=== PATIENT | female | born 1960 | race Caucasian/White ===

== ENCOUNTER 2019-12-01 09:31 | Outpatient (CLI) | payer OTHER, SELFPAY ==
--- NOTE | 2019-12-01 09:33 | ECG_ITS ---
Measurements Intervals [place] Rate: 67 P: 27 [place]: 287 QRS: 9 QRSD: 77 T: 4 QT: 373 QTc: 395 Interpretive Statements SINUS RHYTHM WITH FIRST DEGREE AV BLOCK VOLTAGE CRITERIA FOR LVH BORDERLINE T WAVE ABNORMALITY- INFERIOR LEADS BASELINE ARTIFACT- I, II, III, AVR, AVL, AVF ABNORMAL ECG Electronically Signed On 12-01-2019 10:10:41 LAUNDRY SORTER by Nayan Che D.O.
[2019-12-01 10:02] LABS: Hematocrit 39.4 % (37.0-47.0); Hemoglobin 12.8 g/dL (12.0-15.0)
== END 2019-12-01 09:32 | disposition home or self-care (01) ==
LOC: ANHSURGERY 09:33
PROVIDERS: PCP Internal Medicine; Visit Provider Obstetrics & Gynecology
DX: D64.9 Anemia, unspecified (principal); E78.5 Hyperlipidemia, unspecified; R94.31 Abnormal electrocardiogram [ECG] [EKG]
CPT/HCPCS: 36415; 85014; 85018; 93005

== ENCOUNTER 2019-12-11 01:00 | Day surgery (SDC) | payer OTHER, SELFPAY ==
[2019-11-26 14:48] VITALS: BMI 35.6
--- NOTE | 2019-12-09 10:28 | PM.IMHP ---
H&P: HPI History of Present Illness Chief complaint: Postmenopausal Bleeding Narrative: Paula Duron is a 59 year old female who is admitted for hysteroscopy and dilatation and curettage. She has thickened endometrium and uterine fibroids on ultrasound. Risks and benefits of the procedure reviewed in full. She received the ACOG handout entitled hysteroscopy and dilatation and curettage respectively. She had all questions answered. She asked to proceed Review of Systems Review of Systems: All systems reviewed & are unremarkable except as noted in HPI and below PMFSH Past Medical History Medical History Anemia Cholecystectomy planned 2000 GERD (gastroesophageal reflux disease) Hyperlipidemia Hypothyroidism Osteoarthritis Thrombocytosis Vitamin deficiency Surgical History Surgical History History of surgical removal of meniscus of knee Right: 2010 Left: 2013 Total knee replacement status Right knee: August 2015 Left knee: 2016 Family History Family History Father Hypertension Family history of dementia Acute myocardial infarction Osteoarthritis Sibling Hyperlipidemia Mother Family history of malignant neoplasm of breast in first degree relative Other Family history of heart disease in male family member before age 55 Social History Social History Smoking status: Never smoker Alcohol intake: never Substance use: never Meds Home Medications and Allergies Home Medications Medication Instructions Recorded Confirmed Type conjugated estrogens 0.9 mg tablet 0.9 mg PO DAILY 08/07/19 11/26/19 History esomeprazole magnesium 40 mg 40 mg PO DAILY 08/07/19 11/26/19 History capsule,delayed release ferrous sulfate 325 mg (65 mg 325 mg PO DAILY 08/07/19 11/26/19 History iron) tablet lisinopril 10 mg tablet 10 mg PO DAILY #30 tablet 10/27/19 11/26/19 Rx levothyroxine 125 mcg tablet 125 mcg PO DAILY #90 tablet 11/05/19 11/26/19 Rx loratadine [Claritin] 10 mg PO DAILY 11/26/19 11/26/19 History multivitamin 1 tablet PO DAILY 11/26/19 11/26/19 History atorvastatin 20 mg tablet 20 mg PO DAILY #90 tablet 12/02/19 Rx Allergies Allergy/AdvReac Type Severity Reaction Status Date / Time Penicillins Allergy Unknown Rash Verified 11/26/19 14:49 mold Allergy CONGESTION Verified 11/26/19 14:49 Exam Const: General: no acute distress Eyes: General: appearance normal, both eyes and all related structures Neck: Neck: supple and no JVD Thyroid: thyroid normal Resp: Effort & Inspection: normal respiratory effort Auscultation: clear to auscultation bilaterally Cardio: Rate: regular rate Rhythm: regular rhythm GI: Inspection: non-distended GI Palp: Yes Soft to palpation, No Tenderness to palpation present (GI) and No Guarding due to palpation present (GI) Auscultation: normal bowel sounds : General: Yes bladder normal to palpation External Female Exam: normal external appearance Speculum Exam - Vagina: normal vaginal discharge and No vaginal bleeding Speculum Exam - Cervix: nontender Bimanual exam- vagina & uterus: bladder normal to palpation and No Cervical tenderness present OB/external & speculum: No vaginal bleeding Skin: General skin exam: no rashes or lesions noted Extrem: General: normal to inspection and no edema Psych: Mental Status: mental status grossly normal Affect: normal affect Assessment and Plan Additional Plan impression: Postmenopausal bleeding Plan: Hysteroscopy, dilatation and curettage
[2019-12-11 06:04] VITALS: BP 140/51; PULSE 77; RESP 16; TEMP 36.6; O2SAT 99
[2019-12-11] MEDS: LACTATED RINGERS 1,000 ML 30 ML IV CONT (06:20)
--- NOTE | 2019-12-11 06:59 | WPDHPUPDATE1 ---
History and Physical Update Update Date/Time: 12/11/19 06:59 History and Physical has been reviewed, including an updated exam of the patient. There are NO changes in the patient's condition. Risks, benefits, and alternatives have been discussed and questions answered. Patient agrees to proceed with procedure.
--- NOTE | 2019-12-11 07:04 | WPDANESEPPF ---
Anes - Initial Pre Proc Eval Procedure: Operation Date: 12/11/19 07:30 Proposed Procedures p Hysteroscopy, Dilation and Curettage - Duncan Chen MD Date/Time: 12/11/19 07:04 Surgeon: Duncan Chen MD Pre Op Diagnosis: Postmenopausal Bleeding Patient Data Age: 59 Gender: F Height: 5 ft 3 in Weight: 91.5 kg Last Vital Signs Temp 36.6 C 12/11/19 06:04 Pulse 77 12/11/19 06:04 Resp 16 12/11/19 06:04 BP 140/51 L 12/11/19 06:04 Pulse Ox 99 12/11/19 06:04 Allergies Allergy/AdvReac Type Severity Reaction Status Date / Time mold Allergy Mild CONGESTION Verified 12/11/19 06:08 Penicillins Allergy Mild Rash Verified 12/11/19 06:08 Home Medications Medication Instructions Recorded Confirmed Type conjugated estrogens 0.9 mg tablet 0.9 mg PO DAILY 08/07/19 12/11/19 History esomeprazole magnesium 40 mg 40 mg PO DAILY 08/07/19 12/11/19 History capsule,delayed release ferrous sulfate 325 mg (65 mg 325 mg PO DAILY 08/07/19 12/11/19 History iron) tablet lisinopril 10 mg tablet 10 mg PO DAILY #30 tablet 10/27/19 12/11/19 Rx levothyroxine 125 mcg tablet 125 mcg PO DAILY #90 tablet 11/05/19 12/11/19 Rx loratadine [Claritin] 10 mg PO DAILY 11/26/19 12/11/19 History multivitamin 1 tablet PO DAILY 11/26/19 12/11/19 History atorvastatin 20 mg tablet 20 mg PO DAILY #90 tablet 12/02/19 12/11/19 Rx hydrocodone-acetaminophen [[place]] 1 tablet PO Q4H PRN #20 tablet 12/11/19 Rx Patient hx anesthesia problems: post op nausea/vomiting Family hx anesthesia problems: none PMFSH Past Medical History Medical History Anemia Cholecystectomy planned 2000 GERD (gastroesophageal reflux disease) Hyperlipidemia Hypothyroidism Osteoarthritis Thrombocytosis Vitamin deficiency Surgical History Surgical History History of surgical removal of meniscus of knee Right: 2010 Left: 2013 Total knee replacement status Right knee: August 2015 Left knee: 2017 Family History Family History Father Hypertension Family history of dementia Acute myocardial infarction Osteoarthritis Sibling Hyperlipidemia Mother Family history of malignant neoplasm of breast in first degree relative Other Family history of heart disease in male family member before age 55 Social History Social History Smoking status: Never smoker Alcohol intake: never Substance use: never Anes - Eval Final PreProcedure Day of Procedure 12/11/19 07:04 Patient weight: obese Heart: regular rate and rhythm Lungs: clear to auscultation Airway: Mallampati scale class II Neurological: alert and oriented Last oral intake: >/= 8 hours ASA classification: III Emergent: no Anesthetic plan: proceed Anesthesia type and monitoring: general GIVS and standard monitoring Informed Consent: The patient's anesthetic plan and its attendant risks and benefits were discussed with the patient/family/POA. Questions were solicited and answers provided to the satisfaction of the patient/family/POA.
[2019-12-11] MEDS: KETOROLAC 30 MG/ML VIAL (*BKC) IV PUSH (07:45)
--- NOTE | 2019-12-11 07:51 | P.OP_ITS ---
Procedure Note - Detailed Date of procedure: 12/11/19 Pre-op diagnosis: Postmenopausal Bleeding Surgeon: Duncan Chen MD Postop diagnosis: Postmenopausal bleeding and uterine polyp Procedure: Hysteroscopy, dilatation curettage, polypectomy Anesthesia: IV sedation local Findings: Small uterine polyp benign-appearing endometrium Complications: None Description of procedure: The patient was prepped and draped in the normal sterile fashion placed in the dorsal lithotomy position. Under excellent IV s edation weighted speculum was placed in the posterior fornix of vagina. Anterior lip of the cervix grasped with a single-tooth tenaculum. 2.5cc of 1% xylocaine anesthesia placed at 2 for 8:10 a.m. respectively. Uterus sounded to 8cm. Serial dilatation with fragmented dilators performed followed by passage of the 5mm visualizing hysteroscope. Normal saline was used as visualizing medium. The uterine polyp was seen in the polyp forcep was used to remove this in toto. No other abnormalities were seen. The uterus was scraped over the entire 360?. The instruments removed. The patient was awakened. She went to recovery in satisfactory condition. All sponge, needle, instrument counts were correct. There were no immediate complications
[2019-12-11 07:52] VITALS: BP 128/72; PULSE 71; RESP 16; O2SAT 100
[2019-12-11 08:22] VITALS: BP 137/59; PULSE 66; RESP 14
== END 2019-12-11 08:48 | disposition home or self-care (01) ==
PROVIDERS: PCP Internal Medicine; Visit Provider Obstetrics & Gynecology
PROC: 0U5B8ZZ Destruction of Endometrium, Via Natural or Artificial Opening Endoscopic (ICD-10-PCS; CPT 58563; principal; 2019-12-11 07:30)
DX: N95.0 Postmenopausal bleeding (principal); N84.0 Polyp of corpus uteri; D64.9 Anemia, unspecified; E78.5 Hyperlipidemia, unspecified; K21.9 Gastro-esophageal reflux disease without esophagitis; E03.9 Hypothyroidism, unspecified; M19.90 Unspecified osteoarthritis, unspecified site; E66.9 Obesity, unspecified; Z68.35 Body mass index [BMI] 35.0-35.9, adult
CPT/HCPCS: 58558; 88305; A9270; J1885; J2250; J2704; J7030; J7120

== ENCOUNTER 2020-11-17 07:43 | Outpatient (CLI) | payer OTHER, SELFPAY ==
--- NOTE | ~2020-11-17 | MM_ITS ---
EXAMINATION: MM screening guille BI w girma HISTORY: Screening TECHNIQUE: Craniocaudal and mediolateral oblique 3-D tomosynthesis images were obtained and synthetic 2-D images were generated. CAD analysis was submitted and interpreted. COMPARISON: Comparison to multiple prior studies sequentially, with oldest reviewed study dated 08/30. BREAST PARENCHYMAL COMPOSITION: The breasts are almost entirely fatty. FINDINGS: There is no evidence of suspicious mass, calcification, or architectural distortion to sugg est malignancy in either breast. There has been no suspicious interval change. IMPRESSION: 1. No mammographic evidence of malignancy. 2. Recommend routine screening mammography in one year. BI-RADS Category 1: Negative Reviewed, dictated and finalized at location [facility] [employer]PA[employer]
== END 2020-11-17 07:44 | disposition home or self-care (01) ==
PROVIDERS: PCP Internal Medicine; Visit Provider Obstetrics & Gynecology
DX: Z12.31 Encounter for screening mammogram for malignant neoplasm of breast (principal)
CPT/HCPCS: 77063; 77067

== ENCOUNTER 2020-12-16 17:02 | Outpatient (CLI) | payer OTHER, SELFPAY | END 2020-12-16 17:03 | disposition home or self-care (01) | LOC: ANHCOVIDVC 17:02 | PROVIDERS: PCP Internal Medicine | DX: Z23 Encounter for immunization (principal) | CPT/HCPCS: 0001A; 91300 ==

== ENCOUNTER 2021-01-05 08:01 | Outpatient (CLI) | payer OTHER, SELFPAY ==
--- NOTE | 2021-01-05 08:04 | ECG_ITS ---
Measurements Intervals [place] Rate: 64 P: 28 [place]: 309 QRS: 8 QRSD: 86 T: 4 QT: 389 QTc: 403 Interpretive Statements SINUS RHYTHM WITH FIRST DEGREE AV BLOCK VOLTAGE CRITERIA FOR LVH BASELINE ARTIFACT- I, II, III, AVR, AVL, AVF ABNORMAL ECG Electronically Signed On 01-05-2021 9:11:05 CDT by Nayan Che D.O.
[2021-01-05 09:05] LABS: Hematocrit 37.4 % (37.0-47.0); Hemoglobin 12.6 g/dL (12.0-15.0)
== END 2021-01-05 08:02 | disposition home or self-care (01) ==
LOC: ANHSURGERY 08:03
PROVIDERS: PCP Internal Medicine; Visit Provider Obstetrics & Gynecology
DX: N95.0 Postmenopausal bleeding (principal); E78.5 Hyperlipidemia, unspecified; I10 Essential (primary) hypertension; Z01.818 Encounter for other preprocedural examination
CPT/HCPCS: 36415; 85014; 85018; 93005

== ENCOUNTER → 2021-01-06 00:59 | Outpatient (CLI) | payer OTHER, SELFPAY ==
[2021-01-06 19:49] LABS: SARS-CoV-2 RNA PCR Negative
== END ==
PROVIDERS: PCP Internal Medicine; Visit Provider Obstetrics & Gynecology
DX: Z01.812 Encounter for preprocedural laboratory examination (principal); Z20.822 Contact with and (suspected) exposure to COVID-19
CPT/HCPCS: C9803; U0003; U0005

== ENCOUNTER 2021-01-06 16:59 | Outpatient (CLI) | payer OTHER, SELFPAY | END 2021-01-06 17:00 | disposition home or self-care (01) | LOC: ANHCOVIDVC 16:59 | PROVIDERS: PCP Internal Medicine | DX: Z23 Encounter for immunization (principal) | CPT/HCPCS: 0002A; 91300 ==

== ENCOUNTER 2021-01-09 01:20 | Day surgery (SDC) | payer OTHER, SELFPAY ==
[2020-12-26 16:01] VITALS: BMI 37.1
--- NOTE | 2021-01-03 14:01 | PM.IMHP ---
H&P: HPI History of Present Illness Date/Time: 01/03/21 14:01 Edil is a 60-year-old 1 para 1 who is admitted for hysteroscopy / polypectomy / dilatation curettage. She is postmenopausal and ultrasound showed a last consistent with probable fibroids. The EMC was poorly defined but appeared prominent with vascular flow present. Risks and benefits of the procedure reviewed in full. The patient received the ACOG handout entitled hysteroscopy / and dilatation curettage Chief Complaint: postmenopausal bleed Review of Systems Review of Systems: All systems reviewed & are unremarkable except as noted in HPI and below PMFSH Past Medical History Medical History Allergies Anemia Arthritis Cholecystectomy planned 2000 GERD (gastroesophageal reflux disease) Hyperlipidemia Hypothyroidism Osteoarthritis Thrombocytosis Vitamin deficiency Surgical History Surgical History History of cholecystectomy History of surgical removal of meniscus of knee Right: 2010 Left: 2013 Total knee replacement status Right knee: August 2015 Left knee: 2016 Family History Family History Father Hypertension Family history of dementia Acute myocardial infarction Osteoarthritis Sibling Hyperlipidemia Mother Family history of malignant neoplasm of breast in first degree relative Other Family history of heart disease in male family member before age 55 Social History Social History Smoking status: Never smoker Alcohol intake: never Substance use: never Substance use type: does not use 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 Gender identity (if verbalized by the patient): Female Spiritual care concerns: No Meds Home Medications and Allergies Home Medications Medication Instructions Recorded Confirmed Type conjugated estrogens 0.9 mg tablet 0.9 mg PO DAILY 08/07/19 12/26/20 History loratadine [Claritin] 10 mg PO DAILY 11/26/19 12/26/20 History multivitamin 1 tablet PO DAILY 11/26/19 12/26/20 History lisinopril 10 mg tablet 10 mg PO DAILY #90 tablet 03/07/20 12/26/20 Rx atorvastatin 20 mg tablet 20 mg PO DAILY #90 tablet 08/29/20 12/26/20 Rx calcium-vitamin D3-vitamin K 500 1 tablet PO DAILY 09/07/20 12/26/20 History mg-100 unit-40 mcg chewable tablet progesterone micronized 100 mg 100 mg PO DAILY cap 09/07/20 12/26/20 History capsule estradiol 2 mg PO DAILY 12/26/20 12/26/20 History ferrous sulfate [iron] 650 mg PO DAILY 12/26/20 12/26/20 History levothyroxine 125 mcg PO DAILY 12/26/20 12/26/20 History esomeprazole magnesium 40 mg 40 mg PO DAILY #90 cap 12/28/20 Rx capsule,delayed release Allergies Allergy/AdvReac Type Severity Reaction Status Date / Time mold Allergy Mild CONGESTION Verified 12/26/20 15:58 Penicillins Allergy Mild Rash Verified 12/26/20 15:58 Exam Const: General: no acute distress Eyes: General: appearance normal, both eyes and all related structures Neck: Neck: supple and no JVD Thyroid: thyroid normal Resp: Effort & Inspection: normal respiratory effort Auscultation: clear to auscultation bilaterally Cardio: Rate: regular rate Rhythm: regular rhythm GI: Inspection: non-distended GI Palp: Yes Soft to palpation, No Tenderness to palpation present (GI) and No Guarding due to palpation present (GI) Auscultation: normal bowel sounds : External Female Exam: normal external appearance Speculum Exam - Vagina: normal appearance of the vagina Speculum Exam - Cervix: normal appearance of the cervix Bimanual exam- vagina & uterus: enlarged Bimanual Exam- Adnexa, other: no masses Skin: General skin exam: no rashes or lesions noted Extrem: General: normal to inspection and no edema Psych: Mental Status
--- NOTE | 2021-01-09 06:06 | WPDHPUPDATE1 ---
History and Physical Update Update Date/Time: 01/09/21 06:06 History and Physical has been reviewed, including an updated exam of the patient. There are NO changes in the patient's condition. Risks, benefits, and alternatives have been discussed and questions answered. Patient agrees to proceed with procedure.
[2021-01-09 07:29] VITALS: BP 121/56; PULSE 77; RESP 20; TEMP 36.7; O2SAT 98
--- NOTE | 2021-01-09 07:47 | WPDANESEPPF ---
Anes - Initial Pre Proc Eval Procedure: Operation Date: 01/09/21 09:15 Proposed Procedures p Hysteroscopy Dilation and Curettage With Polypectomy - Duncan Chen MD Date/Time: 01/09/21 07:47 Surgeon: Duncan Chen MD Pre Op Diagnosis: postmenopausal bleeding Patient Data Age: 60 Gender: F Height: 5 ft 3 in Weight: 95.2 kg Allergies Allergy/AdvReac Type Severity Reaction Status Date / Time mold Allergy Mild CONGESTION Verified 12/26/20 15:58 Penicillins Allergy Mild Rash Verified 12/26/20 15:58 Home Medications Medication Instructions Recorded Confirmed Type conjugated estrogens 0.9 mg tablet 0.9 mg PO DAILY 08/07/19 12/26/20 History loratadine [Claritin] 10 mg PO DAILY 11/26/19 12/26/20 History multivitamin 1 tablet PO DAILY 11/26/19 12/26/20 History lisinopril 10 mg tablet 10 mg PO DAILY #90 tablet 03/07/20 12/26/20 Rx atorvastatin 20 mg tablet 20 mg PO DAILY #90 tablet 08/29/20 12/26/20 Rx calcium-vitamin D3-vitamin K 500 1 tablet PO DAILY 09/07/20 12/26/20 History mg-100 unit-40 mcg chewable tablet progesterone micronized 100 mg 100 mg PO DAILY cap 09/07/20 12/26/20 History capsule estradiol 2 mg PO DAILY 12/26/20 12/26/20 History ferrous sulfate [iron] 650 mg PO DAILY 12/26/20 12/26/20 History levothyroxine 125 mcg PO DAILY 12/26/20 12/26/20 History esomeprazole magnesium 40 mg 40 mg PO DAILY #90 cap 12/28/20 Rx capsule,delayed release hydrocodone-acetaminophen 1 tablet PO Q6H PRN #14 tablet 01/09/21 Rx Patient hx anesthesia problems: post op nausea/vomiting Family hx anesthesia problems: none PMFSH Past Medical History Medical History Allergies Anemia Arthritis Cholecystectomy planned 2000 GERD (gastroesophageal reflux disease) Hyperlipidemia Hypothyroidism Osteoarthritis Thrombocytosis Vitamin deficiency Surgical History Surgical History History of cholecystectomy History of surgical removal of meniscus of knee Right: 2010 Left: 2013 Total knee replacement status Right knee: August 2015 Left knee: 2017 Family History Family History Father Hypertension Family history of dementia Acute myocardial infarction Osteoarthritis Sibling Hyperlipidemia Mother Family history of malignant neoplasm of breast in first degree relative Other Family history of heart disease in male family member before age 55 Social History Social History Smoking status: Never smoker Alcohol intake: never Substance use: never Substance use type: does not use Living arrangements: alone 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 Questions were solicited and answers provided to the satisfaction of the patient/family/POA.
[2021-01-09] MEDS: ACETAMINOPHEN 500 MG TABLET 1000 MG PO (07:48)
[2021-01-09] MEDS: LACTATED RINGERS 1,000 ML 30 ML IV CONT (08:00)
[2021-01-09] MEDS: SCOPOLAMINE 1.5 MG PATCH TRANSDERM (08:11)
--- NOTE | 2021-01-09 09:23 | SUR.OPER ---
40ML NS IN, 40ML NS OUT
--- NOTE | 2021-01-09 09:26 | P.OP_ITS ---
Procedure Note - Detailed Date of procedure: 01/09/21 Pre-op diagnosis: postmenopausal bleeding Surgeon: Duncan Chen MD Postop diagnosis: Postmenopausal bleeding Procedure: Hysteroscopy/dilatation curettage Anesthesia: IV sedation local EBL: 5cc Findings: Uterus sounded to 7cm. Retroverted in nature. Clot in the uterus but no definitive abnormalities. Complications: None Description of procedure: The patient was prepped draped in the normal sterile fashion placed in the dorsal lithotomy position. Under excellent IV sedation weighted speculum was placed in posterior fornix of vagina. Anterior lip of the cervix grasped with single-tooth tenaculum and 2.5cc 1% xylocaine anesthesia chirag betty at 2, 4, 8, 10:00 a.m. of the cervix. Uterus was retroverted and sounded to 7cm. Serial dilatation with fragmented dilators performed followed by passage of the 5mm visualizing hysteroscope. Normal saline was used as visualizing medium. Clots were seen each fallopian tube os could be seen but no abnormality seen the uterus was scraped over the entire 360? removing a moderate amount of tissue. When no further tissue removed and a good grating sound was heard the instruments were removed. The patient was awakened. All sponge, needle, instrument counts were correct. She went to recovery in satisfactory condition. There were no immediate complications noted
[2021-01-09 09:30] VITALS: BP 113/55; PULSE 73; RESP 12; O2SAT 95
[2021-01-09 10:00] VITALS: BP 130/61; PULSE 63; RESP 12; O2SAT 98
[2021-01-09 10:20] VITALS: BP 135/57; PULSE 71; RESP 12
== END 2021-01-09 10:30 | disposition home or self-care (01) ==
PROVIDERS: PCP Internal Medicine; Visit Provider Obstetrics & Gynecology
PROC: 0U5B8ZZ Destruction of Endometrium, Via Natural or Artificial Opening Endoscopic (ICD-10-PCS; CPT 58563; principal; 2021-01-09 09:15)
DX: N95.0 Postmenopausal bleeding (principal); N85.02 Endometrial intraepithelial neoplasia [EIN]; N85.4 Malposition of uterus; E03.9 Hypothyroidism, unspecified; K21.9 Gastro-esophageal reflux disease without esophagitis; E05.90 Thyrotoxicosis, unspecified without thyrotoxic crisis or storm; M19.90 Unspecified osteoarthritis, unspecified site; D47.3 Essential (hemorrhagic) thrombocythemia; E56.9 Vitamin deficiency, unspecified; E66.9 Obesity, unspecified; Z68.36 Body mass index [BMI] 36.0-36.9, adult; Z90.49 Acquired absence of other specified parts of digestive tract; D64.9 Anemia, unspecified
CPT/HCPCS: 58558; 88305; A9270; J1100; J2250; J2405; J2704; J3010; J7030; J7120

== ENCOUNTER → 2021-02-21 01:45 | Outpatient (CLI) | payer OTHER, SELFPAY ==
[2021-02-22 19:27] LABS: SARS-CoV-2 RNA PCR Negative
== END ==
PROVIDERS: PCP Internal Medicine; Visit Provider Obstetrics & Gynecology
DX: Z01.812 Encounter for preprocedural laboratory examination (principal); Z20.822 Contact with and (suspected) exposure to COVID-19
CPT/HCPCS: C9803; U0003; U0005

== ENCOUNTER 2021-02-21 08:27 | Outpatient (CLI) | payer OTHER, SELFPAY ==
[2021-02-21 09:02] LABS: Basophils Absolute Auto 0.1 K/mm3 (0.0-0.1); Basophils Percent Auto 0.6 % (0.2-1.2); Eosinophils Absolute Auto 0.3 K/mm3 (0-0.3); Eosinophils Percent Auto 4.4 % (0-4.4); Hematocrit 38.4 % (37.0-47.0); Hemoglobin 12.7 g/dL (12.0-15.0); Immature Granulocyte Absolute 0.02 K/mm3 (0.00-0.031); Immature Granulocyte Percent A 0.3 % (0-0.5); Lymphocytes Absolute Auto 2.09 K/mm3 (0.9-3.2); Lymphocytes Percent Auto 26.8 % (18.3-44.2); Mean Corpuscular HGB Conc 33.1 g/dl (32-36); Mean Corpuscular Hemoglobin 29.3 pg (26-34); Mean Corpuscular Volume 88.5 fl (80-100); Mean Platelet Volume 9.5 fl (7.4-10.4); Monocytes Absolute Auto 0.5 K/mm3 (0.1-0.6); Monocytes Percent Auto 6.7 % (2.6-8.5); Neutrophils Absolute Auto 4.8 K/mm3 (1.3-6.7); Neutrophils Percent Auto 61.2 % (45.5-73.1); Platelet Count Result 379 k/mm3 (150-375); Red Blood Count 4.34 M/mm3 (4.2-5.4); Red Cell Distribution Width 12.5 % (11.5-14.5); White Blood Count 7.8 K/mm3 (4.5-10.0)
== END 2021-02-21 08:28 | disposition home or self-care (01) ==
LOC: ANHSURGERY 08:29
PROVIDERS: PCP Internal Medicine; Visit Provider Obstetrics & Gynecology
DX: N95.0 Postmenopausal bleeding (principal)
CPT/HCPCS: 36415; 85025; 86850; 86900; 86901

== ENCOUNTER 2021-02-24 00:48 | Day surgery (SDC) | payer OTHER, SELFPAY ==
[2021-02-15 11:14] VITALS: BMI 37.2
--- NOTE | 2021-02-22 07:42 | PM.IMHP ---
H&P: HPI History of Present Illness Date/Time: 02/22/21 07:42 60-year-old female admitted for robotic total vaginal hysterectomy and bilateral salpingo-oophorectomy secondary to postmenopausal bleeding with atypical hyperplasia. The patient underwent D&C polypectomy which showed atypical hyperplasia. She opts for hysterectomy and bilateral salpingo-oophorectomy. Risks and benefits reviewed including but not exclusive of , aspiration pneumonia, bleeding, transfusion, perforation injury to bowel, bladder, ureters, or other internal organs with need for open laparotomy. risk of DVT was also reviewed. she received the ACOG handout entitled hysterectomy as well as the [facility] handout. She had all questions answered in asked to proceed Chief Complaint: postmenopausal bleeding Review of Systems Review of Systems: All systems reviewed & are unremarkable except as noted in HPI and below PMFSH Past Medical History Medical History Allergies Anemia Arthritis Cholecystectomy planned 2000 GERD (gastroesophageal reflux disease) Hyperlipidemia Hypothyroidism Osteoarthritis Thrombocytosis Vitamin deficiency Surgical History Surgical History History of cholecystectomy History of surgical removal of meniscus of knee Right: 2010 Left: 2013 Total knee replacement status Right knee: August 2015 Left knee: 2016 Family History Family History Father Hypertension Family history of dementia Acute myocardial infarction Osteoarthritis Sibling Hyperlipidemia Mother Family history of malignant neoplasm of breast in first degree relative Other Family history of heart disease in male family member before age 55 Social History Social History Smoking status: Never smoker Alcohol intake: never Substance use: never Substance use type: does not use 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 Gender identity (if verbalized by the patient): Female Spiritual care concerns: No Meds Home Medications and Allergies Home Medications Medication Instructions Recorded Confirmed Type conjugated estrogens 0.9 mg tablet 0.9 mg PO HS 08/07/19 02/15/21 History loratadine [Claritin] 10 mg PO HS 11/26/19 02/15/21 History multivitamin 1 tablet PO DAILY 11/26/19 02/15/21 History calcium-vitamin D3-vitamin K 500 1 tablet PO DAILY 09/07/20 02/15/21 History mg-100 unit-40 mcg chewable tablet progesterone micronized 100 mg 100 mg PO HS cap 09/07/20 02/15/21 History capsule estradiol 2 mg PO HS 12/26/20 02/15/21 History ferrous sulfate [iron] 650 mg PO DAILY 12/26/20 02/15/21 History levothyroxine 125 mcg PO DAILY 12/26/20 02/15/21 History esomeprazole magnesium 40 mg 40 mg PO DAILY #90 cap 12/28/20 02/15/21 Rx capsule,delayed release atorvastatin 20 mg PO HS 02/15/21 02/15/21 History lisinopril 10 mg PO HS 02/15/21 02/15/21 History Allergies Allergy/AdvReac Type Severity Reaction Status Date / Time mold Allergy Mild CONGESTION Verified 02/15/21 11:11 Penicillins Allergy Mild Rash Verified 02/15/21 11:11 Exam Const: General: no acute distress Eyes: General: appearance normal, both eyes and all related structures Neck: Neck: supple and no JVD Thyroid: thyroid normal Resp: Effort & Inspection: normal respiratory effort Auscultation: clear to auscultation bilaterally Cardio: Rate: regular rate Rhythm: regular rhythm GI: Inspection: non-distended GI Palp: Yes Soft to palpation, No Tenderness to palpation present (GI) and No Guarding due to palpation present (GI) Auscultation: normal bowel sounds : External Female Exam: normal external appearance Speculum Exam - Vagina: normal appearance of the vagina Speculum Exam - Cervix: Cervical os closed B
[2021-02-24] VITALS (14 sets, daily range): BP systolic 117–155; BP diastolic 46–82; PULSE 56–89; RESP 14–18; TEMP 36.5–37; O2SAT 94–100; BMI 36.7
--- NOTE | 2021-02-24 10:20 | SUR.PREOP ---
PT STATES HER ALLERGY TO PCN GIVES A MILD RASH YEARS AGO. 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
[2021-02-24] MEDS: KETOROLAC 15 MG/ML VIAL (*BKC) IV PUSH (10:35)
[2021-02-24] MEDS: LACTATED RINGERS 1,000 ML 30 ML IV CONT ×2 (10:35→12:35)
--- NOTE | 2021-02-24 10:35 | WPDANESEPPF ---
Anes - Initial Pre Proc Eval Procedure: Operation Date: 02/24/21 12:00 Proposed Procedures p Robotic Assisted Total Vaginal Hysterectomy With Bilateral Salpingo Oophorectomy - Duncan Chen MD Date/Time: 02/24/21 10:35 Surgeon: Duncan Chen MD Pre Op Diagnosis: Post menopausal bleeding, atypical hyperplasia Patient Data Age: 60 Gender: F Height: 5 ft 3 in Weight: 94.1 kg Last Vital Signs Temp 36.5 C 02/24/21 10:25 Pulse 72 02/24/21 10:25 Resp 18 02/24/21 10:25 BP 141/72 H 02/24/21 10:25 Pulse Ox 100 02/24/21 10:25 Allergies Allergy/AdvReac Type Severity Reaction Status Date / Time mold Allergy Mild CONGESTION Verified 02/24/21 10:08 Penicillins Allergy Mild Rash Verified 02/24/21 10:08 Home Medications Medication Instructions Recorded Confirmed Type conjugated estrogens 0.9 mg tablet 0.9 mg PO HS 08/07/19 02/24/21 History loratadine [Claritin] 10 mg PO HS 11/26/19 02/24/21 History multivitamin 1 tablet PO DAILY 11/26/19 02/24/21 History calcium-vitamin D3-vitamin K 500 1 tablet PO DAILY 09/07/20 02/24/21 History mg-100 unit-40 mcg chewable tablet progesterone micronized 100 mg 100 mg PO HS cap 09/07/20 02/15/21 History capsule estradiol 2 mg PO HS 12/26/20 02/24/21 History ferrous sulfate [iron] 650 mg PO DAILY 12/26/20 02/24/21 History levothyroxine 125 mcg PO DAILY 12/26/20 02/24/21 History esomeprazole magnesium 40 mg 40 mg PO DAILY #90 cap 12/28/20 02/24/21 Rx capsule,delayed release atorvastatin 20 mg PO HS 02/15/21 02/24/21 History lisinopril 10 mg PO HS 02/15/21 02/24/21 History hydrocodone-acetaminophen 1 tablet PO Q4H PRN #30 tablet 02/24/21 Rx Patient hx anesthesia problems: none Family hx anesthesia problems: none PMFSH Past Medical History Medical History Allergies Anemia Arthritis Cholecystectomy planned 2000 GERD (gastroesophageal reflux disease) Hyperlipidemia Hypothyroidism Osteoarthritis Thrombocytosis Vitamin deficiency Surgical History Surgical History History of cholecystectomy History of surgical removal of meniscus of knee Right: 2010 Left: 2013 Total knee replacement status Right knee: August 2015 Left knee: 2017 Family History Family History Father Hypertension Family history of dementia Acute myocardial infarction Osteoarthritis Sibling Hyperlipidemia Mother Family history of malignant neoplasm of breast in first degree relative Other Family history of heart disease in male family member before age 55 Social History Social History Smoking status: Never smoker Alcohol intake: never Substance use: never Substance use type: does not use Living arrangements: alone 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 Questions were solicited and answers provided to the satisfaction of the patient/family/POA.
[2021-02-24] MEDS: ACETAMINOPHEN 500 MG TABLET 1000 MG PO (10:36)
--- NOTE | 2021-02-24 10:59 | WPDHPUPDATE1 ---
History and Physical Update Update Date/Time: 02/24/21 10:59 History and Physical has been reviewed, including an updated exam of the patient. There are NO changes in the patient's condition. Risks, benefits, and alternatives have been discussed and questions answered. Patient agrees to proceed with procedure.
[2021-02-24] MEDS: ceFAZolin 2 GM/D5W 50 ML 2 GM/50 ML BAG IVPB (11:14)
--- NOTE | 2021-02-24 12:25 | PM.PROC ---
Procedure Note - Detailed Date of procedure: 02/24/21 Pre-op diagnosis: Post menopausal bleeding, atypical hyperplasia Surgeon: Duncan Chen MD Postop diagnosis: Postmenopausal bleeding/atypical hyperplasia/fibroids Procedure: Robotic total vaginal hysterectomy and bilateral salpingo oophorectomies Anesthesia: General endotracheal Findings: Enlarged uterus. Normal-appearing tubes bilaterally the right ovary was adhesed to the pelvic sidewall. Complications: None EBL: 25cc Description of procedure: The patient was prepped and draped in the normal sterile fashion and placed in the dorsal lithotomy position. Under excellent general endotracheal anesthesia weighted speculum was placed in posterior fornix of vagina. Anterior lip of the cervix grasped with a single-tooth tenaculum and the uterus sounded to 10cm. Serial dilatation with fragmented dilators performed followed by passage of the 10. CHAY and the 3. Cold cup. A 16 Latvian catheter was placed in the bladder which was drained of clear urine. The weighted speculum was removed and the remainder the instruments were removed. Gloves were changed. A supraumbilical incision made the Veress needle passed in the abdomen. The abdomen was filled with CO2 gas [id number]. The 8mm trocar advanced in the abdomen. The downside was visualized and no injury seen. Patient placed in Trendelenburg and right left lateral quadrant incisions made. The 8mm trocars advanced under direct visualization assuring no injury. A right upper quadrant incision was then made. The 10mm trocar advanced the abdomen under direct visualization assuring no injury. S a fair amount of scar tissue was seen from the right ovary to the ovarian fossa. The colon was markedly adherent to the pelvic sidewall on the left. The robot was docked. The colon was sharply dissected down further was peritoneal adhesions to help visualize left ovary and tube. The right ovary was markedly adherent to the ovarian fossa and this was sharply dissected until it was clear. The left round ligament was grasped, burned, cut. Anteriorly bladder flap was formed by sharply dissecting the peritoneum and reflecting the bladder caudally to the opposite round ligament which was clamped, burned, cut. Next the left infundibulopelvic structure was skeletonized to remove the left ovary and tube this was serially clamped, burned, cut and brought to the level of previously cut round ligament. In like fashion the infundibulopelvic on the right was skeletonized to remove the right ovary and tube this was clamped, burned, cut and brought to level of the previously cut round ligament. The round and cardinal ligaments were serially skeletonized clamped, burned, cut and brought down the lateral edge of the uterus until the vessels could be seen on the left these were individually clamped, burned, cut. The cardinal and broad ligament on the right were serially skeletonized clamping burning cutting and bring this down the lateral edge of the uterus until the uterine vessels could be seen on the right these were individually clamped, burned, cut. Next a colpotomy incision was made and the cervix uterus and tubes removed through the vagina. The vagina was closed with continuous running 0V lock from lateral edge to lateral edge back to the midline. Irrigation undertaken to clear blood loss estimated 25cc. Hemostasis was assured the gas was removed from the abdomen. The robot was undocked. The trocars removed and the incisions closed with 4 O Monocryl and glue. The remaining instruments in the vagina removed. The patient was awakened and went to recovery in satisfactory condition. All sponge, needle, instrument counts were correct. There were no immediate complications noted
[2021-02-24] MEDS: fentaNYL CITRATE INJ (*CRX) 100 MCG/2 ML VIAL 25 MCG IV PUSH ×4 (12:44→13:26)
--- NOTE | 2021-02-24 13:57 | SUR.PHASEI ---
1357- Call to OB Second floor to give nurse report. Per [place] nurse is not available at this time and will call back when available to receive report.
--- NOTE | 2021-02-24 14:20 | PC.NURSE ---
This patient, Paula Duron, was received from PACU on 02/24/21 at 1420. Patient/family oriented to unit policies and routines
[2021-02-24] MEDS: DEXTROSE 5%/LACTATED RINGERS 1,000 ML 125 ML IV CONT (14:41)
[2021-02-24] MEDS: KETOROLAC 30 MG/ML VIAL (*BKC) IV PUSH ×2 (14:42→19:35)
[2021-02-24] MEDS: MORPHINE SULFATE (*CRX) 4 MG/ML INJ IV PUSH (15:23)
[2021-02-25 04:38] VITALS: BP 144/78; PULSE 85; RESP 16; TEMP 36.7
[2021-02-25 04:54] LABS: Basophils Percent Auto 0.1 % (0.2-1.2); Hematocrit 37.3 % (37.0-47.0); Hemoglobin 12.4 g/dL (12.0-15.0); Immature Granulocyte Absolute 0.04 K/mm3 (0.00-0.031); Immature Granulocyte Percent A 0.4 % (0-0.5); Lymphocytes Absolute Auto 1.42 K/mm3 (0.9-3.2); Lymphocytes Percent Auto 14.4 % (18.3-44.2); Mean Corpuscular HGB Conc 33.2 g/dl (32-36); Mean Corpuscular Hemoglobin 28.6 pg (26-34); Mean Corpuscular Volume 86.1 fl (80-100); Mean Platelet Volume 9.1 fl (7.4-10.4); Monocytes Absolute Auto 0.5 K/mm3 (0.1-0.6); Monocytes Percent Auto 5.5 % (2.6-8.5); Neutrophils Absolute Auto 7.9 K/mm3 (1.3-6.7); Neutrophils Percent Auto 79.6 % (45.5-73.1); Platelet Count Result 371 k/mm3 (150-375); Red Blood Count 4.33 M/mm3 (4.2-5.4); Red Cell Distribution Width 12.2 % (11.5-14.5); White Blood Count 9.9 K/mm3 (4.5-10.0)
--- NOTE | 2021-02-25 07:15 | PM.DS ---
DS: Admitting Diagnosis Admitting Diagnosis Admitting Diagnosis: Postmenopausal bleeding with benign D and C findings DS: Summary Hospital Course Hospital Course: the patient was managed for robotic total vaginal hysterectomy and bilateral salpingo-oophorectomy. Her hospital course was unremarkable. She remained afebrile. She was up, voiding the difficulty, passing gas, eating regular diet general without complaints. Time Spent with Patient Time attestation: Total time spent providing and/or coordinating discharge services: Exam Const: General: no acute distress Eyes: General: appearance normal, both eyes and all related structures Neck: Neck: supple and no JVD Thyroid: thyroid normal Resp: Effort & Inspection: normal respiratory effort Auscultation: clear to auscultation bilaterally Cardio: Rate: regular rate Rhythm: regular rhythm GI: Inspection: non-distended GI Palp: Yes Soft to palpation, No Tenderness to palpation present (GI) and No Guarding due to palpation present (GI) Auscultation: normal bowel sounds : General: Yes bladder normal to palpation External Female Exam: normal external appearance Speculum Exam - Vagina: normal vaginal discharge and No vaginal bleeding Speculum Exam - Cervix: nontender Bimanual exam- vagina & uterus: bladder normal to palpation and No Cervical tenderness present OB/external & speculum: No vaginal bleeding Skin: General skin exam: no rashes or lesions noted Extrem: General: normal to inspection and no edema Psych: Mental Status: mental status grossly normal Affect: normal affect DS: Data Data Completed and Pending Pending studies at discharge: Pending at discharge 02/24/21 11:41 Surgical [PTH] Routine Labs on day of discharge: Labs from last 24 hours 02/25/21 04:44 WBC 9.9 RBC 4.33 Hgb 12.4 Hct 37.3 MCV 86.1 MCH 28.6 MCHC 33.2 RDW 12.2 Plt Count 371 MPV 9.1 Immature Gran % (Auto) 0.4 Neut % (Auto) 79.6 H Lymph % (Auto) 14.4 L Glenn % (Auto) 5.5 Eos % (Auto) 0.0 Baso % (Auto) 0.1 L Lymph # (Auto) 1.42 Glenn # (Auto) 0.5 Eos # (Auto) 0.0 Baso # (Auto) 0.0 Abs Immat Gran (auto) 0.04 H Absolute Neuts (auto) 7.9 H Absolute Nucleated RBC 0.0 Nucleated RBC % 0.0 Discharge Plan Discharge Patient Disposition: Home, Self-Care Stand Alone Forms: General Discharge Instructions Follow-up/Referrals: Duncan Chen MD [Physician] - Discharge Medications: New hydrocodone-acetaminophen 5-325 mg tablet 1 tablet PO Q4H PRN (Reason: pain) Qty: 30 RF: 0 No Action Premarin 0.9 mg tablet 0.9 mg PO HS RF: 0 calcium-vitamin D3-vitamin K 500-100-40 mg-unit-mcg tablet,chewable 1 tablet PO DAILY RF: 0 progesterone micronized 100 mg capsule 100 mg PO HS RF: 0 multivitamin Tablet 1 tablet PO DAILY RF: 0 loratadine [Claritin] 10 mg Tablet 10 mg PO HS RF: 0 estradiol 2 mg tablet 2 mg PO HS RF: 0 levothyroxine 125 mcg tablet 125 mcg PO DAILY RF: 0 ferrous sulfate [iron] 325 mg (65 mg iron) Tablet 650 mg PO DAILY RF: 0 atorvastatin 20 mg tablet 20 mg PO HS RF: 0 lisinopril 10 mg tablet 10 mg PO HS RF: 0 esomeprazole magnesium [Nexium] 40 mg capsule,delayed release(DR/EC) 40 mg PO DAILY Qty: 90 RF: 3
--- NOTE | 2021-02-25 07:17 | P.PNOB_ITS ---
OB - PN: Subj Subjective Date/time seen: 02/25/21 07:17 Patient comments: no complaints and pain well controlled OB - PN: Obj Data Labs CBC & Chem 7: 02/25/21 04:44 Labs: Laboratory Results - last 24 hr 02/25/21 04:44 WBC 9.9 RBC 4.33 Hgb 12.4 Hct 37.3 MCV 86.1 MCH 28.6 MCHC 33.2 RDW 12.2 Plt Count 371 MPV 9.1 Immature Gran % (Auto) 0.4 Neut % (Auto) 79.6 H Lymph % (Auto) 14.4 L Hancock % (Auto) 5.5 Eos % (Auto) 0.0 Baso % (Auto) 0.1 L Lymph # (Auto) 1.42 Hancock # (Auto) 0.5 Eos # (Auto) 0.0 Baso # (Auto) 0.0 Abs Immat Gran (auto) 0.04 H Absolute Neuts (auto) 7.9 H Absolute Nucleated RBC 0.0 Nucleated RBC % 0.0 OB - PN A/P Plan day: 1 Plan: discharge home and follow up 6 weeks (2 weeks) Time Spent With Patient Time: Total time spent is greater than 50% in coordination of care (as documented) at patient's floor/unit and/or counseling patient: Time with patient: less than 15 minutes Review of Systems Review of Systems: All systems reviewed & are unremarkable except as noted in HPI and below Exam Const: General: no acute distress Eyes: General: appearance normal, both eyes and all related structures Neck: Neck: supple and no JVD Thyroid: thyroid normal Resp: Effort & Inspection: normal respiratory effort Auscultation: clear to auscultation bilaterally Cardio: Rate: regular rate Rhythm: regular rhythm GI: Inspection: non-distended GI Palp: Yes Soft to palpation, No Tenderness to palpation present (GI) and No Guarding due to palpation present (GI) Auscultation: normal bowel sounds : General: Yes bladder normal to palpation External Female Exam: normal external appearance Speculum Exam - Vagina: normal vaginal discharge and No vaginal bleeding Speculum Exam - Cervix: nontender Bimanual exam- vagina & uterus: bladder normal to palpation and No Cervical tenderness present OB/external & speculum: No vaginal bleeding Skin: General skin exam: no rashes or lesions noted Extrem: General: normal to inspection and no edema Psych: Mental Status: mental status grossly normal Affect: normal affect
--- NOTE | 2021-02-25 08:46 | P.PNAN_ITS ---
Anes - Prog Note Post-Op Date/Time: 02/25/21 08:46 Cardiovascular status: normal Respiratory status: normal Airway patency: baseline Mental status: baseline Post-Op hydration status: normal Vital Signs: Last Vital Signs Temp 36.7 C 02/25/21 04:38 Pulse 85 02/25/21 04:38 Resp 16 02/25/21 04:38 BP 144/78 H 02/25/21 04:38 Pulse Ox 97 02/24/21 23:01 Pain Score (VAS): 2 I/O: Intake & Output 02/24/21 02/25/21 02/25/21 23:59 07:59 15:59 Intake Total 1000 Output Total 1999 1600 Balance -1999 -600 Laboratory Tests 02/25/21 04:44 02/25/21 04:44 WBC 9.9 RBC 4.33 Hgb 12.4 Hct 37.3 MCV 86.1 MCH 28.6 MCHC 33.2 RDW 12.2 Plt Count 371 MPV 9.1 Immature Gran % (Auto) 0.4 Neut % (Auto) 79.6 H Lymph % (Auto) 14.4 L Dubois % (Auto) 5.5 Eos % (Auto) 0.0 Baso % (Auto) 0.1 L Lymph # (Auto) 1.42 Dubois # (Auto) 0.5 Eos # (Auto) 0.0 Baso # (Auto) 0.0 Abs Immat Gran (auto) 0.04 H Absolute Neuts (auto) 7.9 H Absolute Nucleated RBC 0.0 Nucleated RBC % 0.0 Post-procedural complaints: none Patient Feedback: Patient satisfied with anesthetic care.
[2021-02-25] MEDS: SIMETHICONE 80 MG TAB.CHEW PO (09:53)
[2021-02-25] MEDS: IBUPROFEN 600 MG TABLET PO (09:53)
[2021-02-25 09:54] VITALS: BP 154/77; PULSE 78; RESP 16; TEMP 36.8; O2SAT 94
[2021-02-25] MEDS: ENOXAPARIN 40 MG/0.4 ML SYRINGE SUB-Q (09:54)
== END 2021-02-25 13:53 | disposition home or self-care (01) ==
LOC: ANHSURGERY 09:59 → ANHOB2 14:23
PROVIDERS: PCP Internal Medicine; Visit Provider Obstetrics & Gynecology
PROC: (CPT 58552; principal; 2021-02-24 12:00)
DX: N95.0 Postmenopausal bleeding (principal); N73.6 Female pelvic peritoneal adhesions (postinfective); N85.01 Benign endometrial hyperplasia; D25.1 Intramural leiomyoma of uterus; D25.0 Submucous leiomyoma of uterus; N83.8 Other noninflammatory disorders of ovary, fallopian tube and broad ligament; E78.5 Hyperlipidemia, unspecified; E03.9 Hypothyroidism, unspecified; K21.9 Gastro-esophageal reflux disease without esophagitis; D64.9 Anemia, unspecified; M19.90 Unspecified osteoarthritis, unspecified site; E66.9 Obesity, unspecified; Z68.36 Body mass index [BMI] 36.0-36.9, adult
CPT/HCPCS: 58552; S2900; 36415; 85025; 88307; 99199; A9270; J0690; J1100; J1650; J1885; J2250; J2270; J2405; J2704; J2710; J3010; J7120; J7121

== ENCOUNTER 2021-12-20 08:35 | Outpatient (CLI) | payer OTHER, SELFPAY ==
--- NOTE | ~2021-12-20 | MM_ITS ---
EXAMINATION: MM screening guille BI w girma HISTORY: Screening mammogram TECHNIQUE: Craniocaudal and mediolateral oblique 3-D tomosynthesis images were obtained and synthetic 2-D images were generated. CAD analysis was submitted and interpreted. COMPARISON: November 17, 2020, December 04, 2018, October 08, 2017 bilateral screening mammogram examinati ons BREAST PARENCHYMAL COMPOSITION: The breasts are almost entirely fatty. FINDINGS: There is no evidence of suspicious mass, calcification, or architectural distortion to sugg est malignancy in either breast. There has been no suspicious interval change. IMPRESSION: 1. No mammographic evidence of malignancy. 2. Recommend routine screening mammography in one year. BI-RADS Category 1: Negative Reviewed, dictated and finalized at location A.
== END 2021-12-20 08:36 | disposition home or self-care (01) ==
LOC: ANHIMG 08:37
PROVIDERS: PCP Internal Medicine; Visit Provider Obstetrics & Gynecology
DX: Z12.31 Encounter for screening mammogram for malignant neoplasm of breast (principal)
CPT/HCPCS: 77063; 77067

== ENCOUNTER 2023-02-11 07:27 | Outpatient (CLI) | payer OTHER, SELFPAY ==
--- NOTE | ~2023-02-11 | MM_ITS ---
EXAMINATION: MM screening guille BI w girma HISTORY: Screening mammogram, family history of breast cancer in her mother. TECHNIQUE: Craniocaudal and mediolateral oblique 3-D tomosynthesis images were obtained and synthetic 2-D images were generated. CAD analysis was submitted and interpreted. COMPARISON: 12/20/2021, 11/17/2020, 12/04/2018 BREAST PARENCHYMAL COMPOSITION: The breasts are almost entirely fatty. FINDINGS: No suspicious mass, calcification, or architectural distortion are identified in either trinity ast to suggest malignancy. There has been no suspicious interval change. IMPRESSION: 1. No mammographic evidence of malignancy. 2. Recommend routine screening mammography in one year. BI-RADS Category 1: Negative Reviewed, dictated and finalized at location A.
== END 2023-02-11 07:28 | disposition home or self-care (01) ==
LOC: ANHIMG 07:29
PROVIDERS: PCP Internal Medicine; Visit Provider Obstetrics & Gynecology
DX: Z12.31 Encounter for screening mammogram for malignant neoplasm of breast (principal)
CPT/HCPCS: 77063; 77067

== ENCOUNTER 2024-02-21 07:18 | Outpatient (CLI) | payer OTHER, SELFPAY ==
--- NOTE | ~2024-02-21 | MM_ITS ---
EXAMINATION: MM screening guille BI w girma HISTORY: Screening mammogram TECHNIQUE: Craniocaudal and mediolateral oblique 3-D tomosynthesis images were obtained and synthetic 2-D images were generated. CAD analysis was submitted and interpreted. COMPARISON: 02/11/2023, 12/20/2021 bilateral screening mammogram examinations BREAST PARENCHYMAL COMPOSITION: The breasts are almost entirely fatty. FINDINGS: There is no evidence of suspicious mass, calcification, or architectural distortion to sugg est malignancy in either breast. There has been no suspicious interval change. IMPRESSION: 1. No mammographic evidence of malignancy. 2. Recommend routine screening mammography in one year. BI-RADS Category 1: Negative Reviewed, dictated and finalized at location B.
== END 2024-02-21 07:19 | disposition home or self-care (01) ==
LOC: ANHIMG 07:22
PROVIDERS: PCP Internal Medicine; Visit Provider Obstetrics & Gynecology
DX: Z12.31 Encounter for screening mammogram for malignant neoplasm of breast (principal)
CPT/HCPCS: 77063; 77067

== ENCOUNTER 2025-07-08 08:51 | Outpatient (CLI) | payer OTHER, SELFPAY ==
--- NOTE | ~2025-07-08 | US_ITS ---
EXAMINATION: US venous doppler LE , 07/08/2025 8:52 CDT HISTORY: M79.605 - Pain in left leg Comparison: None Technique: Payne-scale and color Doppler images were attempted of the lower saphenofemoral junction, common femoral vein,superficial femoral vein, proximal deep femoral vein, proximal deep femoral vein, popliteal vein and posterior tibial veins. Findings: Deep Venous System:Normal flow, augmentation and compressibility. No echogenic thrombus identified. The contralateral saphenofemoral junction appears unremarkable. Superficial Venous SystemNo superficial thrombophlebitis. Soft tissues: Soft tissues are unremarkable. Impression: Negative for DVT. Reviewed, dictated and finalized at location P. Impression: Negative for DVT.
== END 2025-07-08 08:52 | disposition home or self-care (01) ==
LOC: GOSHIMG 08:51
PROVIDERS: PCP Nurse Practitioner; Visit Provider Nurse Practitioner
DX: M79.605 Pain in left leg (principal)
CPT/HCPCS: 93971

== ENCOUNTER 2025-08-23 12:30 | Outpatient (RCR) | payer OTHER, SELFPAY ==
--- NOTE | 2025-07-28 10:59 | OPREHPOC ---
Outpatient Therapy Plan of Care This is a Multidisciplinary Plan of Care that may contain components documented by all disciplines (PT, OT, and ST.) PT Problem 1 PT Problem #1 Knowledge Deficit PT Goal 1 Goal / Goal Update 1. Patient to demonstrate independence with HEP for improved self-reliance of symptom management. Target Visit 4 PT Goal 1 Goal / Goal Update 1. Patient to decrease subjective reports of pain to <2/10 for improved ADL tolerance 2. Pt will increase LEFS score by at least 9 points in order to demonstrate the minimal clinically important difference (MCID) in functional improvement. Target Visit 4 PT Problem 3 PT Problem #3 Impaired Functional Mobility PT Goal 1 Goal / Goal Update 1. Decreased neural tension shown in slump testing 2. Patient to report increased sitting tolerance to >30 with minimal reports of pain Target Visit 8
--- NOTE | 2025-07-28 10:59 | PTOPEVAL1 ---
Assessment and note entered by Goran Kovacs, PT Evaluation Information Assessment Status Evaluation ICD-10 Condition Codes (PT) Pain in low back M54.50,Radiculopathy, lumbar region M54.16 Onset Spring 2024 Subjective Information Pt presents with left leg pain. Started a couple of months ago but not improving. NSAIDs do seem to help and she has tried bio freeze and a hot pack but that didn't seem to help as much. She states the pain is from her left calf up to her thigh. She thought it was a pulled muscle from heavy yard work she has been doing since spring but given it was not improving she wanted evaluated. She now feels less pain when she is up and moving and has more pain when sitting and trying to relax. Reported Pain Level Pain Score 2: Self Report Assessment PT Clinical Summary Patient presents to physical therapy with a primary issue of Left leg pain since early this spring. Patient demonstrates hip and core weakness , decreased mobility, abnormal posture, gait deficit, and decreased flexibility that limit their ability to perform activities of daily living and functional movements. Additionally pt seems to have high neural tension onL side compared to R with slump tets. Patient will benefit from skilled physical therapy to address the above listed deficits and return to prior level of function. Home exercise program instructed and written handout provided, exercises tolerated well with no adverse effects to note post-session. Patient was educated on importance of adherence to home exercise program. Patient was also educated on anatomy, prognosis, home modalities, and plan of care. Plan of Care Interventions Electrical Stimulation,Gait Training,Hot Pack/Cold Pack,Mechanical Traction,Neuro Re-education, Therapeutic Activities,Therapeutic Exercise, Ultrasound,Other PT Services Indicated Yes Treatment Frequency and 1-2x week for 8 visits Duration These treatments will address the objective and functional deficits as defined above. The patient will be advanced safely and appropriately in order for the patient to progress towards his/her prior level of function. Additional exercises will be introduced and as well as a comprehensive home exercise program upon discharge, if needed, ?to ensure carryover of functional gains achieved in the clinic. This treatment plan has been reviewed and agreement upon by the patient.
--- NOTE | 2025-08-23 13:21 | PTOPDC ---
Assessment and note entered by Goran Kovacs, PT Evaluation Information Assessment Status Discharge ICD-10 Condition Codes (PT) Pain in low back M54.50,Radiculopathy, lumbar region M54.16 Onset Spring 2024 Subjective Information Pt states she feels 50-75% better overall. She notes she still has good days and bad days but has had an overall reduction in symptoms. She states that the body mechanics she has learned has been really helpful and she does not have as many difficulties with prolonged sitting. Reported Pain Level Pain Score 0: Self Report Assessment PT Clinical Summary Patient's L LE pain and tightness has improved overall as evidenced by decrease symptoms and increases in mobility, strength, and overall functional use of the extremity. Patient has met therapy goals and is pleased with progress made towards the remaining goals. Patient to discharge from physical therapy this date and continue with updated home exercise program as instructed. Patient to contact physical therapist or primary care provider if questions or concerns arise. Plan of Care PT Services Indicated No
== END 2025-08-23 16:13 | disposition home or self-care (01) ==
LOC: ANHGOSHPT 12:30
PROVIDERS: PCP Nurse Practitioner; Visit Provider Nurse Practitioner
DX: M79.605 Pain in left leg (principal)
CPT/HCPCS: 97110; 97112; 97140; 97161; 97530